=== PATIENT | female | born 1955 | race Caucasian/White ===

== ENCOUNTER 2023-03-07 14:22 | Outpatient (CLI) | payer OTHER, SELFPAY | END 2023-03-07 14:23 | disposition home or self-care (01) | LOC: KYNREF 14:23 | PROVIDERS: Visit Provider Nurse Practitioner Family | DX: I49.9 Cardiac arrhythmia, unspecified (principal); R03.0 Elevated blood-pressure reading, without diagnosis of hypertension | CPT/HCPCS: 80048 ==

== ENCOUNTER 2023-10-13 14:11 | Outpatient (CLI) | payer OTHER, SELFPAY ==
--- OUTSIDE RECORDS SUMMARY | 2023-10-13 14:24 | XMS_ITS | Clinical Summary ---
Author Name Unknown Organization [facility] er Address [address] [place] [address] Care Team Providers Care Cutter Banana Room Name Role Phone Micheline Braswell MD Primary Care Provider Allergies Active Allergy Reactions Criticality Noted Date Comments Amoxicillin-Pot Clavulanate Diarrhea High 05/13/2021 Hydrocodone-Acetaminoph en Other (see comments) Low 04/10/2013 feel things crawling all over Medications Medication Sig Dispensed Refills Start Date End Date Status naproxen sodium (ALEVE) 220 MG tablet Take 220 mg by mouth if needed for mild pain 0 Active Multiple Vitamins-Minerals (HAIR SKIN AND NAILS FORMULA PO) Take 2 tablets by mouth 1 (one) time each day 0 Active Carboxymethylcellulo se Sodium (EYE DROPS OP) Administer 1 drop into affected eye(s) twice a day Saline eye drops one drop each eye four times daily 0 Active pseudoephedrine (SUDAFED) 30 MG tablet Take 30 mg by mouth every 4 (four) hours if needed for congestion 0 Active YT-Lpqxptakod-Pyzlfm inophen (NYQUIL COLD & FLU PO) Take 30 mL by mouth if needed (every 6 hours) 0 Active Active Problems Problem Noted Date Diagnosed Date Obstructive sleep apnea syndrome 10/28/2021 Overview: Mod-severe, diagnosed 07/2021. Dental abscess 01/23/2019 Health examination of defined subpopulation 0 03/2019 Encounters Date Type Department Care Team Description 08/04/2023 10:00 AM WRAP TURNER [facility] Medicine [address] [place] [address] Encounters for blood and urine testing (Primary Dx) from Last 3 Months Immunizations Name Administration Dates Next Due COVID-19, mRNA, LNP-S, PF, 30mcg/0.3mL dose Pfiz er 02/11/2021,01/21/2021 Family History Medical History Relation Comments Diabetes Father borderline diabe tic diet controlled Heart disease Father kelation treatme nts No Known Problems Father's Sister 1 No Known Problems Father's Sister 2 No Known Problems Maternal Grandfather Stroke Maternal Grandmother multiple Cancer Mother lung Other Mother multiple benign tumors Stroke Mother Cancer Mother's Brother Cancer Mother's Sister 1 Cancer Mother's Sister 2 Cancer Mother's Sister 3 Early Paternal Grandfather mining acci dent No Known Problems Paternal Grandmother Cancer Sister ovarian No Known Problems Son 1 Early Son 2 in house fi re/wheelchair bound Relation Status Comments Father Father's Sister 1 Alive Father's Sister 2 Alive Maternal Grandfather Maternal Grandmother Mother Alive Mother's Brother Mother's Sister 1 Mother's Sister 2 Mother's Sister 3 Paternal Grandfather Paternal Grandmother Sister Alive Son 1 Alive Son 2 Social History Tobacco Use Types Packs/Day Years Used Date Smoking Tobacco: Never Smokeless Tobacco: Never Alcohol Use Standard Drinks/Week Comments Yes 1 (1 standard drink = 0.6 oz pur e alcohol) usually 2 glasses per month AUDIT-C Answer Date Recorded Frequency of Alcohol Consumption 2-4 times a tue01/23/2019 Average Number of Drinks 1 or 2 019 Frequency of Binge Drinking Never 03/2019 PHQ-2 Answer Date Recorded PHQ-9 Total Score 0 10/28/2021 Sex and Gender Information Value Date Recorded Sex Assigned at Not on file Gender Identity Not on file Sexual Orientation Not on file Last Filed Vital Signs Vital Sign Reading Time Taken Comments Blood Pressure 146/80 06/17/2022 9:07 AM CDT Pulse 78 06/17/2022 9:07 AM CDT Temperature 36.4 ??C (97.5 ??F) 06/17/2022 9:07 AM CD T Respiratory Rate 18 06/17/2022 9:07 AM CDT Oxygen Saturation 99% 06/17/2022 9:07 AM CDT Inhaled Oxygen Concentration - - Weight 90.2 kg (198 lb 14.4 oz) 06/17/2022 9:07 AM CDT Height 141 cm (4' 7.51) 10/28/2021 10: 41 AM WRAP TURNER Body Mass Index 45.38 10/28/2021 10:41 AM WRAP TURNER Plan of Treatment Health Maintenance Due Date Last Done Comments Bone Density Scan 1955 CT Colonography 1955 FIT-DNA 1955 Sigmoidoscopy 1955 iFOBT 1955 Medicare Annual Wellness Visit (AWV) 1973 DTaP,Tdap,and Td Vaccines (1 - Tdap) 1974 Zoster Vaccines (1 of 2) 2005 Mammogram 02/29/2020 02/28/2019 Fall Risk Performed 10/28/2022 10/28/2021 COVID-19 Vaccine (2022-2 4 season) 2023 09/02/2021, 02/11/2021, 01/21/2021 Influenza Vaccine (#1) 2023 Pap Smear Discontinued 01/24/2019 Colonoscopy Discontinued Colorectal Cancer Screening Discontinued HPV Vaccines Aged Out No longer eligi ble based on patient's age to complete this topic Pneumococcal Vaccine: 65+ Years Discontinued Medical Devices Implanted Type Area Calender Machine Operator Helper Device Identifier Shelf Expiration Date Model / Serial / Lot 1-Piece Iol With [employer]ec[employer] - [id number] - [id number] - [id number] Implanted:Qty: 1 on 11/10/2021 by Raina Salazar MD at [facility] Left: Eye 06/25/2024 [id number] / [id number] / Advance Directives For more information, please contact: [phone] Documents on File Type Date Recorded Patient Senior Human Resources Representative Expl anation Advance Directive 07/03/2021 2:24 PM Adva nce Directive Advance Directives and Living Will 03/14/2019 11:19 AM Latest Code Status on File Code Status Date Activated Date Inactivated Comments Full Code 11/10/2021 9:24 AM 11/10/2021 12:03 PM Care Teams Cutter Banana Room Relationship Specialty Start Date End Date Micheline Braswell MD [address] [place] [phone] PCP - General 01/05/22
--- OUTSIDE RECORDS SUMMARY | 2023-10-13 14:24 | XMS_ITS | Encounter Summary ---
Author Name Unknown Organization [facility] er Address [address] [place] [address] Care Team Providers Care Associate Veterinarian Name Role Phone Micheline Braswell MD Primary Care Provider Encounter Details Date Type Department Care Team (Late st Contact Info) Description 08/04/2023 10:00 AM COLLEGE TUTOR Lab [facility] Medicine [address] [place] [address] Encounters for blood and urine testing (Primary Dx) Social History Tobacco Use Types Packs/Day Years [...] on file Sexual Orientation Not on file documented as of this encounter Plan of Treatment Not on file documented as of this encounter Visit Diagnoses Diagnosis Encounters for blood and urine testing- Primary Laboratory examination, unspecified documented in this encounter Care Teams Associate Veterinarian Relationship Specialty Start Date End Date Micheline Braswell MD [address] [place] [address] [address] [place] [phone] PCP - General 01/05/22 documented as of this encounter
[2023-10-13 21:54] LABS: SARS PCR* Negative SARS-CoV-2 (Negative)
== END 2023-10-13 14:12 | disposition home or self-care (01) ==
LOC: KYNREF 14:11
PROVIDERS: PCP Nurse Practitioner Family; Visit Provider Nurse Practitioner Family
DX: J11.1 Influenza due to unidentified influenza virus with other respiratory manifestations (principal)
CPT/HCPCS: 87635

== ENCOUNTER 2025-01-01 08:35 | Outpatient (CLI) | payer OTHER, SELFPAY ==
--- NOTE | 2025-01-01 09:15 | CRLHL7_ITS ---
For Patients: As a result of the Century Cures Act, medical imaging exams and procedure reports are released immediately into your electronic medical record. You may view this report before your referring provider. If you have questions, please contact your health care provider. INDICATION: Radiculopathy. COMPARISON: 12/17/2024. Technique Sagittal T1, T2, and STIR sequences. Axial T1 and T2 weighted sequences. FINDINGS: Degenerative grade 1 anterolisthesis of L4 on L5 measures approximately 6 mm. Otherwise, normal alignment. No fractures. No vertebral body loss of height. No ligamentous injury. No suspicious osseous lesions. Normal conus terminates at L1. T11-12: Disc degeneration posterior disc bulge. No narrowing of the spinal canal. Mild narrowing of bilateral foramina. T12-L1: Disc degeneration. There is a small left paracentral disc extrusion measuring approximately 6 mm in diameter with 10 mm of cephalad migration. At the level the interspace, no narrowing of spinal canal. No neural foraminal narrowing. L1-2 L2-3: No spinal canal or neural foraminal narrowing. L3-4: Posterior disc bulge. Mild narrowing of spinal canal. No neural foraminal narrowing. Mild facet arthropathy. L4-5: Grade 1 anterolisthesis. Disc degeneration. Modic type 1 endplate changes. Unroofed posterior disc bulge. Combined facet arthropathy, there is moderate severe narrowing of spinal canal. Impingement of the traversing L5 nerve roots. Oblique orientation of bilateral foramina with moderate severe right and [id number] left neural foraminal narrowing. Potential impingement of the exiting right L4 nerve root. Moderate facet arthropathy. Bilateral separate effusions. L5-S1: Posterior disc bulge. No narrowing of spinal canal. No impingement of the traversing S1 nerve roots. Mild narrowing of bilateral foramina. Mild facet arthropathy. Small bilateral facet joint effusions. Degenerative changes of the SI joints. IMPRESSION: 1. Degenerative grade 1 anterolisthesis of L4 on L5. Otherwise normal alignment. No fractures 2. Lumbar spondylosis 3. At T12-L1, small left paracentral disc extrusion with cephalad migration. Otherwise, no spinal canal or neural foraminal narrowing. 4. At L4-5, moderate to severe narrowing of the spinal canal. Impingement of the traversing L5 nerve roots. Moderate to severe right neural foraminal narrowing. 5. At L5-S1, mild narrowing of the bilateral neural foramina. Dictated by Radu Melgoza MD @ 01/01/2025 2:36:31 PM (Electronically Signed)
== END 2025-01-01 08:36 | disposition home or self-care (01) ==
LOC: MRI 08:35
PROVIDERS: PCP Nurse Practitioner Family; Visit Provider Nurse Practitioner Family
DX: M54.16 Radiculopathy, lumbar region (principal); M47.896 Other spondylosis, lumbar region; M51.25 Other intervertebral disc displacement, thoracolumbar region; M51.26 Other intervertebral disc displacement, lumbar region
CPT/HCPCS: 72148

== ENCOUNTER 2025-01-22 14:00 | Outpatient (CLI) | payer OTHER, SELFPAY | END 2025-01-22 14:01 | disposition home or self-care (01) | LOC: INJ CL 14:00 | PROVIDERS: PCP Nurse Practitioner Family; Visit Provider Family Medicine | DX: M54.16 Radiculopathy, lumbar region (principal) | CPT/HCPCS: 64483; J1100; Q9966 ==